=== PATIENT | male | born 1950 | race Asian ===

== ENCOUNTER 2020-11-29 08:38 | Day surgery (SDC) | payer MEDICARE ==
[~2020-11-29] VITALS: Ht 172.7 cm; Wt 81.7 kg
[~2020-11-29 08:38] MED LIST: AMLO5TAB4 PO; ATOR40TA78 PO; LISI1TAB39 PO; MULT-449 PO; OMEG12002 PO; TAMS-11 PO; [UNRECOGNIZED DRUG - OTHER] PO
[2020-11-29 09:08] VITALS: BP 156/88
[2020-11-29] MEDS ORDERED: FENTANYL PF 100 MCG/2ML ONE ×2 (09:10→11:12)
[2020-11-29] MEDS ORDERED: MIDAZOLAM 1 MG/ML, 2ML ONE (09:10)
[2020-11-29] MEDS ORDERED: LACTATED RINGERS 1,000 ML IV SCH (09:30)
[2020-11-29] MEDS ORDERED: CHLORHEXIDINE 15 ML UDC PO ONE (09:30)
[2020-11-29] MEDS ORDERED: CHLORHEXIDINE 15 ML UDC ONE (09:31)
[2020-11-29] MEDS ORDERED: HYDROmorphone 1 MG/ML, 1ML INJ IVPush PRN (10:00)
[2020-11-29] MEDS ORDERED: HYDROcodone/APAP 7.5-325MG/15ML UDC PO PRN (10:00)
[2020-11-29] MEDS ORDERED: PROMETHAZINE 25 MG/ML, 1ML IVPush PRN (10:00)
[2020-11-29] MEDS ORDERED: OXYcodone 5 MG/5 ML ORAL.SOL UDC PO PRN (10:00)
[2020-11-29] MEDS ORDERED: ONDANSETRON 2MG/ML, 2ML IVPush PRN (10:00)
[2020-11-29] MEDS ORDERED: MEPERIDINE/PF 25MG/0.5ML IVPush PRN (10:00)
[2020-11-29] MEDS ORDERED: SODIUM CHLORIDE 0.9% IS ONE (10:30)
[2020-11-29] MEDS ORDERED: GEMCITABINE HCL IS ONE (10:30)
[2020-11-29] MEDS ORDERED: GEMCITABINE HCL 1,000 MG in SODIUM CHLORIDE 0.9% 23.7 ML IS ONE (10:30)
[2020-11-29] MEDS: FENTANYL PF 100 MCG/2ML IV PRN ×2 (11:13→11:23)
== END 2020-11-29 13:15 | disposition home or self-care (01) ==
LOC: OUT 08:38
PROVIDERS: ATTEND Urology
DX: N32.89 Other specified disorders of bladder (principal); D41.4 Neoplasm of uncertain behavior of bladder; I10 Essential (primary) hypertension; Z20.822 Contact with and (suspected) exposure to COVID-19; Z79.899 Other long term (current) drug therapy; Z85.51 Personal history of malignant neoplasm of bladder
CPT/HCPCS: 51720; 52234; 88305; 93005; J2250; J3010; J7120; U0003; U0005